=== PATIENT | female | born 1945 ===

== ENCOUNTER 2018-07-16 10:03 | Outpatient (CLI) | payer OTHER ==
[~2018-07-16 10:03] MED LIST: ATORVASTATIN CA10 MG; CEFADROXIL500 MG PO; CIPRO500 MG PO; DITROPAN XL10 MG PO; METFORMIN HCL500 M3; NABUMETONE750 MG PO; SYNTHROID50 MCG; ULTRACET PO
== END 2018-07-16 15:43 | disposition home or self-care (01) ==
LOC: TOM 10:03
DX: N20.0 Calculus of kidney (principal)

== ENCOUNTER 2019-01-06 11:24 | Outpatient (CLI) | payer OTHER | END 2019-01-06 17:00 | disposition home or self-care (01) | LOC: TOM 11:24 | DX: D12.8 Benign neoplasm of rectum (principal); K57.30 Diverticulosis of large intestine without perforation or abscess without bleeding; K56.600 Partial intestinal obstruction, unspecified as to cause ==

== ENCOUNTER 2019-12-28 08:53 | Outpatient (CLI) | payer OTHER | END 2019-12-28 09:03 | disposition home or self-care (01) | LOC: RX STUDY 08:53 | DX: R13.19 Other dysphagia (principal) ==